=== PATIENT | female | born 1990 | race African-American/Black ===

== ENCOUNTER 2017-07-12 23:20 | Emergency (ER) | payer OTHER ==
[~2017-07-12] VITALS: Ht 165.1 cm; Wt 77.1 kg
[~2017-07-12 23:20] MED LIST: FLEXERIL PO; NOHOMEMEDICATIONS; NORCO 5-325 TA1 EACH PO
[2017-07-13] MEDS ORDERED: COMPAZINE5 M1 PO (00:58)
[2017-07-13 01:21] VITALS: BP 105/67
== END 2017-07-13 01:20 | disposition home or self-care (01) ==
LOC: ER 23:20
DX: R51 Headache (principal)